=== PATIENT | female | born 1990 | race Caucasian/White ===

== ENCOUNTER 2019-08-14 09:20 | Emergency (ER) | payer OTHER ==
[~2019-08-14] VITALS: Ht 160 cm; Wt 54.4 kg
[~2019-08-14 09:20] MED LIST: BUTALB-APAP-CA1 EACH PO; FLAGYL500 MG PO; NOHOMEMEDICATIONS
[2019-08-14 09:55] LABS: INFLUENZA A ANTIGEN Negative (Negative); INFLUENZA B ANTIGEN Negative (Negative)
[2019-08-14 10:15] VITALS: BP 120/70
== END 2019-08-14 10:15 | disposition home or self-care (01) ==
LOC: M.ERS 09:20
PROVIDERS: Family Medicine
DX: J06.9 Acute upper respiratory infection, unspecified (principal); Z98.890 Other specified postprocedural states; Z90.49 Acquired absence of other specified parts of digestive tract